=== PATIENT | female | born 2005 | race Caucasian/White ===

== ENCOUNTER 2025-01-08 13:41 | Emergency (ER) | payer OTHER ==
[~2025-01-08] VITALS: Ht 177.8 cm; Wt 82.3 kg
[2025-01-08 14:01] VITALS: BP 115/77; PULSE 81; RESP 18; O2SAT 99
--- NOTE | 2025-01-08 14:14 | Physician Documentation ---
History of Present Illness ~ Chief Complaint: Laceration Stated Complaint: HEAD LAC Time Seen by MD: 15:18 HPI This is a 19-year-old female who presents with a laceration to her right forehead after falling off a tube while being towed by a boat. Patient reports no loss of consciousness. Patient does report headache nausea and some light sensitivity. States that her tetanus is up-to-date per Day of Onset: Jan 08, 2025 Medication Reconciliation Allergies: Coded Allergies: No Known Allergies (Unverified , 01/08/25) Scheduled PRN ONDANSETRON ODT 4mg tablet (Ondansetron Odt), 1 TAB PO Q6H PRN PRN for nausea/vomiting Review of Systems All Other Systems at this time: Reviewed and Negative ROS As stated above in the HPI, otherwise all systems are reviewed and negative. Physical Exam Vital Signs: Temperature: 98.2, Source: Temporal, Heart Rate: 81, Respiratory Rate: 18, BP: 115/77, Pulse Oximetry: 99, Weight: 82.270 Oxygen Flow Rate: 0 Physical Exam VITALS: Reviewed and as above. GENERAL: Alert, nontoxic appearing, no apparent distress. HEENT: 3 Cm laceration right brow bleeding is controlled RESPIRATORY: No increased work of breathing, no respiratory distress, speaking in full clear sentences NEURO: No focal deficits appropriate to situation and O x4 PSYCH: Procedures Laceration/Wound Repair Laceration : Anesthesia: Lidocaine w/ Epi Prep: irrigated by physician Margins: revised Repaired: skin Wound Repaired With: sutures Suture Size/Type: 5-0 Number of Superficial Sutures: 7 Dressing Applied: non-adherent Tolerated Procedure Well?: yes, no complications Progress Results/Orders Results/Orders Vital Signs 01/08/25 01/08/25 14:01 16:16 Temp 98.2 98.2 Pulse 81 Resp 18 B/P (MAP) 115/77 Pulse Ox 99 O2 Flow Rate 0 Medical Decision Making Findings MSE performed in triage and patient returned to ED lobby by nursing staff Evaluated patient for 40 suspect as a mild concussion and laceration laceration was easily approximated with a five 0 sutures. Treated her for nausea while in the ED Departure Disposition: 01 HOME / SELF CARE / HOMELESS Admission Level of Care: PCU Impression: Primary Impression: Laceration Additional Impression: Nausea Discharge Instructions: Concussion, Adult, [id number], Laceration Care, Adult, [id number] Additional Instructions: have sutures removed in 5-7 days As directed keep the area clean dry. monitor for redness inflammation and drainage Referrals: NO PRIMARY CARE PROVIDER (PCP) Prescriptions ONDANSETRON ODT 4mg tablet (ONDANSETRON ODT) 4 Mg Tab.rapdis 1 TAB PO Q6H PRN PRN for nausea/vomiting for 4 Days, #16 TAB 0 Refills Prov: MAIRA CLIFTON [employer] INSPECTOR 01/08/25 Education Educated: Patient Educated regarding: diagnosis Signature Scribe Signature: f Attestation: Scribed for Maira Clifton Water Project Manager by Maira Clifton - BONI . 01/08/25 23:12 ZULAY SEARS Jan 08, 2025 14:14 MAIRA CLIFTON NP Jan 08, 2025 16:02 JIMBO VILLANUEVA MD Jan 09, 2025 19:51
[2025-01-08] MEDS: ondansetron 4mg rapidly disintigrating tab PO ONE (15:54)
[2025-01-08] MEDS: LIDOcaine 1% W/epiNEPHrine 1:100,000 20ml vial SQ ONE (15:54)
[2025-01-08] MEDS ORDERED: ONDA-243 PO (16:01)
[2025-01-08 16:16] VITALS: TEMP 98.2
== END 2025-01-08 16:17 | disposition home or self-care (01) ==
LOC: ER 13:42
DX: S01.111A Laceration without foreign body of right eyelid and periocular area, initial encounter (principal); R11.0 Nausea; R51.9 Headache, unspecified; X58.XXXA Exposure to other specified factors, initial encounter; Y93.89 Activity, other specified; Y92.89 Other specified places as the place of occurrence of the external cause; Y99.8 Other external cause status
CPT/HCPCS: 12013; 99283; A6449